=== PATIENT | male | born 1995 | race Caucasian/White ===

== ENCOUNTER 2024-01-11 10:01 | Observation (INO) | payer BC ==
[2024-01-11 10:43] LABS: BASOPHILS ABSOLUTE AUTO 0.01 K/uL (0.00-0.20); BASOPHILS PERCENT AUTO 0.2 % (0.0-1.0); EOSINOPHILS ABSOLUTE AUTO 0.05 K/uL (0.00-0.45); EOSINOPHILS PERCENT AUTO 0.8 % (0.0-6.0); HEMATOCRIT 38.8 % (42.0-52.0); HEMOGLOBIN 13.8 g/dL (14.0-18.0); IMMATURE GRAN ABSOLUTE AUTO 0.01 K/uL (0.00-0.05); IMMATURE GRAN PERCENT AUTO 0.2 % (0.0-0.4); LYMPHOCYTES ABSOLUTE AUTO 1.74 K/uL (1.00-4.80); LYMPHOCYTES PERCENT AUTO 29.1 % (24.0-44.0); MEAN CORPUSCULAR HEMOGLOBIN 28.3 pg (28.0-32.0); MEAN CORPUSCULAR HGB CONC 35.6 g/dL (32.0-36.0); MEAN CORPUSCULAR VOLUME 79.7 fL (83.0-99.0); MONOCYTES ABSOLUTE AUTO 0.54 K/uL (0.00-0.80); NEUTROPHILS ABSOLUTE AUTO 3.62 K/uL (1.80-7.70); NEUTROPHILS PERCENT AUTO 60.7 % (41.0-71.0); PLATELET COUNT,PLT 209 K/uL (150-400); RED BLOOD CELL COUNT 4.87 M/uL (4.52-5.90); WHITE BLOOD CELL COUNT,WBC 5.97 K/uL (3.9-11.3)
[2024-01-11] MEDS: Iopamidol 755 MG/ML 500 ML Multipack Bottle IVPUSH STA ×2 (10:46→10:47)
[2024-01-11] MEDS: Ondansetron 4 MG/2 ML SDV IVPUSH ONE (10:56)
[2024-01-11 10:57] LABS: INR 1.16 (0.86-1.11); PTT,PARTIAL THROMBOPLSTIN TIME 28.2 SEC (23.9-30.7)
[2024-01-11] MEDS: Morphine 4 MG/ML Syringe IVPUSH ONE (10:57)
[2024-01-11] MEDS: Sodium Chloride 0.9% 10 ML Syringe FLUSH PRN (11:00)
[2024-01-11] MEDS: Sodium Chloride 0.9% 2.5 ML Syringe FLUSH PRN (11:00)
[2024-01-11 11:16] LABS: A/G RATIO 1.5 (0.9-1.6); ALANINE AMINOTRANSFERASE,ALT 30 IU/L (14-63); ALBUMIN 4.4 g/dL (3.4-5.0); ALKALINE PHOSPHATASE 68 U/L (46-116); ASPARTATE AMNIOTRANSFERASE,AST 17 IU/L (15-37); BILIRUBIN TOTAL 0.7 mg/dL (0.2-1.0); BLOOD UREA NITROGEN,BUN 16 mg/dL (7.0-18.0); CALCIUM 9.4 mg/dL (8.5-10.1); CARBON DIOXIDE,CO2 27.6 mmol/L (21.0-32.0); CHLORIDE,CL 103 mmol/L (98-107); CREATININE 1.1 mg/dL (0.8-1.3); ETHANOL BLOOD MEDICAL <3 mg/dL; GLUCOSE RANDOM 104 mg/dL (74-106); POTASSIUM,K 4.5 mmol/L (3.5-5.1); PROTEIN TOTAL,TP 7.4 g/dL (6.4-8.2); SODIUM,NA 140 mmol/L (136-148)
[2024-01-11 11:25] LABS: ESTIMATED GFR 93 mL/min (>60)
[2024-01-11 12:45] LABS: APPEARANCE,URINE CLEAR; BILIRUBIN,URINE NEGATIVE (NEGATIVE); COLOR,URINE YELLOW; GLUCOSE,URINE NEGATIVE (NEGATIVE); KETONES,URINE NEGATIVE (NEGATIVE); LEUKOCYTE ESTERASE,URINE NEGATIVE (NEGATIVE); NITRITE,URINE NEGATIVE (NEGATIVE); OCCULT BLOOD,URINE NEGATIVE (NEGATIVE); PROTEIN,URINE NEGATIVE (NEGATIVE); UROBILINOGEN,URINE 0.2 EU/dL (<2.0)
[2024-01-11 12:55] LABS: AMPHETAMINES SCREEN, URINE NEGATIVE (CUTOFF=500); BARBITURATE SCREEN,URINE NEGATIVE (CUTOFF=200); BENZODIAZEPINES SCREEN,URINE NEGATIVE (CUTOFF=150); BUPRENORPHINE SCREEN,URINE NEGATIVE (CUTOFF=10); METHADONE SCREEN, URINE NEGATIVE (CUTOFF=200); METHAMPHETAMINES SCREEN, URINE NEGATIVE (CUTOFF=500); OXYCODONE SCREEN,URINE NEGATIVE (CUT0FF=100); PCP SCREEN,URINE NEGATIVE (CUTOFF=25); THC SCREEN,URINE 20 NG/ML NEGATIVE (CUTOFF=50)
[2024-01-11] MEDS ORDERED: Acetaminophen 325 MG Tab PO PRN (13:25)
[2024-01-11] MEDS ORDERED: Polyethylene Glycol 3350 Powder 17 GM Packet PO PRN (13:25)
[2024-01-11] MEDS ORDERED: Ondansetron 4 MG Tab.DIS PO PRN (13:25)
[2024-01-11] MEDS ORDERED: Melatonin 3 MG Tab PO PRN (13:25)
[2024-01-11 13:51] LABS: BASE EXCESS VENOUS 0.8 (-2.0-3.0); PH,VENOUS 7.36 (7.31-7.41)
[2024-01-11 14:22] LABS: HEMOGLOBIN A1C 5.5 %
[2024-01-11 14:50] LABS: FOLIC ACID 17.2 ng/mL (8.60-58.90); TSH ULTRASENSITIVE 1.84 uIU/mL (0.36-3.74)
[2024-01-11] MEDS: Aspirin 325 MG Tab PO SCH (15:23)
[2024-01-11] MEDS: atorvaSTATin 40 MG Tab PO SCH (20:37)
[2024-01-11] MEDS: Gadobenate Dimeglumine 529 MG/ML 20 ML SDV IVPUSH ONE (23:50)
[2024-01-12 05:53] LABS: BASOPHILS ABSOLUTE AUTO 0.02 K/uL (0.00-0.20); BASOPHILS PERCENT AUTO 0.3 % (0.0-1.0); EOSINOPHILS ABSOLUTE AUTO 0.12 K/uL (0.00-0.45); EOSINOPHILS PERCENT AUTO 1.8 % (0.0-6.0); HEMATOCRIT 41.1 % (42.0-52.0); IMMATURE GRAN ABSOLUTE AUTO 0.02 K/uL (0.00-0.05); IMMATURE GRAN PERCENT AUTO 0.3 % (0.0-0.4); LYMPHOCYTES PERCENT AUTO 32.2 % (24.0-44.0); MEAN CORPUSCULAR HEMOGLOBIN 27.8 pg (28.0-32.0); MEAN CORPUSCULAR HGB CONC 34.1 g/dL (32.0-36.0); MEAN CORPUSCULAR VOLUME 81.5 fL (83.0-99.0); MEAN PLATELET VOLUME 9.9 fL (9.4-12.4); MONOCYTES ABSOLUTE AUTO 0.66 K/uL (0.00-0.80); MONOCYTES PERCENT AUTO 10.1 % (0.0-8.0); NEUTROPHILS PERCENT AUTO 55.3 % (41.0-71.0); PLATELET COUNT,PLT 209 K/uL (150-400); RED BLOOD CELL COUNT 5.04 M/uL (4.52-5.90); WHITE BLOOD CELL COUNT,WBC 6.52 K/uL (3.9-11.3)
[2024-01-12 06:27] LABS: A/G RATIO 1.4 (0.9-1.6); ALBUMIN 4.1 g/dL (3.4-5.0); BILIRUBIN TOTAL 0.5 mg/dL (0.2-1.0); CALCIUM 9.1 mg/dL (8.5-10.1); CARBON DIOXIDE,CO2 28.2 mmol/L (21.0-32.0); CREATININE 1.2 mg/dL (0.8-1.3); EST CRCL DRUG DOSING (CG) 93.78 mL/min; POTASSIUM,K 4.5 mmol/L (3.5-5.1); PROTEIN TOTAL,TP 7.1 g/dL (6.4-8.2)
== END 2024-01-12 12:00 | disposition home or self-care (01) ==
LOC: MW.ED 10:01 → MW.MS 13:25
PROVIDERS: ADMIT Family Medicine; ATTEND Family Medicine
DX: I63.9 Cerebral infarction, unspecified (principal); Z87.891 Personal history of nicotine dependence
CPT/HCPCS: 36415; 70450; 70496; 70498; 70553; 71045; 80053; 80061; 80305; 80307; 81003; 82607; 82746; 82803; 82947; 83036; 84443; 84484; 85025; 85610; 85730; 93005; 93306; 96374; 96375; 99285; A9270; J2270; J2405; J3490; Q9967; 93010; G0378

== ENCOUNTER 2024-07-25 22:11 | Emergency (ER) | payer SELFPAY ==
[2024-07-25] MEDS: Tetracaine HCl/PF 0.5% 4 ML Bottle EYEBOTH STA (22:32)
[2024-07-25] MEDS: Erythromycin Base 0.5% Ophth Oint 1 GM Tube EYEBOTH STA (23:06)
== END 2024-07-25 23:27 | disposition home or self-care (01) ==
LOC: MW.ED 22:11
DX: S05.01XA Injury of conjunctiva and corneal abrasion without foreign body, right eye, initial encounter (principal); S05.02XA Injury of conjunctiva and corneal abrasion without foreign body, left eye, initial encounter; Z75.8 Other problems related to medical facilities and other health care; W89.0XXA Exposure to welding light (arc), initial encounter
CPT/HCPCS: 99283; A9270; J3490

== ENCOUNTER 2024-09-04 11:19 | Emergency (ER) | payer BC | END 2024-09-04 12:41 | disposition home or self-care (01) | LOC: MW.ED 11:19 | DX: B35.6 Tinea cruris (principal); Z79.899 Other long term (current) drug therapy; Z75.3 Unavailability and inaccessibility of health-care facilities | CPT/HCPCS: 99282 ==

== ENCOUNTER 2024-10-07 07:41 | Emergency (ER) | payer SELFPAY | END 2024-10-07 08:25 | disposition left against medical advice (07) | LOC: MW.ED 07:41 | DX: Z53.21 Procedure and treatment not carried out due to patient leaving prior to being seen by health care provider (principal) ==

== ENCOUNTER 2024-11-11 08:55 | Emergency (ER) | payer BC, OTHER | END 2024-11-11 13:00 | disposition home or self-care (01) | LOC: MW.ED 08:55 | DX: S82.51XA Displaced fracture of medial malleolus of right tibia, initial encounter for closed fracture (principal); S93.401A Sprain of unspecified ligament of right ankle, initial encounter; W18.43XA Slipping, tripping and stumbling without falling due to stepping from one level to another, initial encounter | CPT/HCPCS: 73610-26-RT; 73610-RT; 73620-26-RT; 73620-RT; 73700-26-RT; 73700-RT; 99284 ==